=== PATIENT | female | born 1970 | race Two or more races ===

== ENCOUNTER 2018-08-20 08:27 | Emergency (ER) | payer BC, OTHER ==
--- NOTE | 2018-08-20 08:33 | UC ---
General HPI - HPI Summary HPI Summary: 2 days progressively worse cough (min productive), sore throat, congestion, general feeling unwell. Tiny bumps on tip of tongue, o/w without garret sores / ulcers. No fever / chills. Cough is bad during the day, very bad at night. No rash. No GI / issues reported. - History of Current Complaint Stated Complaint: SORE THROAT Time Seen by Provider: 08/20/18 08:33 Hx Obtained From: Patient - Allergy/Home Medications Allergies/Adverse Reactions: Allergies Allergy/AdvReac Type Severity Reaction Status Date / Time No Known Allergies Allergy Verified 08/20/18 08:38 PMH/Surg Hx/FS Hx/Imm Hx Previously Healthy: Yes - Surgical History Surgical History: None - Social History Alcohol Use: Daily Substance Use Type: None Smoking Status (MU): Former Smoker Review of Systems All Other Systems Reviewed And Are Negative: Yes Constitutional: Positive: Other - see hpi Skin: Positive: Other - see hpi Eyes: Positive: Other - see hpi ENT: Positive: Other Respiratory: Positive: Other - see hpi Cardiovascular: Positive: Other Gastrointestinal: Positive: Other - see hpi Genitourinary: Positive: Other - see hpi Motor: Positive: Other - see hpi Neurovascular: Positive: Other - see hpi Musculoskeletal: Positive: Other: - see hpi Neurological: Positive: Other Psychological: Positive: Negative Is Patient Immunocompromised?: No Physical Exam Triage Information Reviewed: Yes Appearance: Well-Nourished - sitting up, conversing easily. Looks tired but nad Vital Signs Reviewed: Yes Eye Exam: Normal ENT: Positive: Pharyngeal erythema, Nasal congestion, TM dull, Other - tongue with small scattered white bumps on tip of tongue. Not c/w strawberry tongue, more c/w viral etiology. Neck exam: Normal Neck: Positive: Supple, Nontender, No Lymphadenopathy Respiratory Exam: Other - + ronchorus cough. + exp wheeze middle base. BS equal, full. Respiratory: Positive: No respiratory distress, No accessory muscle use Cardiovascular Exam: Normal Cardiovascular: Positive: RRR, No Murmur, Pulses Normal, Brisk Capillary Refill Abdominal Exam: Normal Abdomen Description: Positive: Nontender Musculoskeletal Exam: Normal Neurological Exam: Normal Psychological Exam: Normal Skin Exam: Normal - nondiaphoretic. no visible or reported rash. Course/Dx - Course Course Of Treatment: Reviewed results / coa / tx plan. Cont subst conversation unremark. Questions as posed answered to the best of my ability. Has used inhalers in the past, but does not have an active inhaler now. - Diagnoses Provider Diagnosis: Bronchitis, Sore throat Discharge - Sign-Out/Discharge Documenting (check all that apply): Post-Discharge Follow Up All imaging exams completed and their final reports reviewed: No Studies - Discharge Plan Condition: Stable Disposition: HOME Prescriptions: Albuterol HFA INHALER* [Ventolin HFA Inhaler*] 1 - 2 puff INH Q6H PRN #1 mdi PRN Reason: Wheezing Azithromyxin JEANETTE (NF) [Z-Jeanette (Zithromax) 250 mg tabs #6] 2 tab PO .TODAY, THEN 1 DAILY #6 tab Benzonatate CAP* [Tessalon 100 MG CAP*] 100 mg PO TID PRN #30 cap PRN Reason: Cough Codeine Phosphate/Guaifenesin [Guaifen-Codeine 200-20 mg/10Ml] 10 ml PO Q6H PRN #200 liquid MDD 40mg PRN Reason: Cough Patient Education Materials: Pharyngitis (ED), Acute Bronchitis (ED), Bronchospasm (ED) Referrals: No Primary Care Phys,NOPCP [Primary Care Provider] - Additional Instructions: Follow up with your primary care physician, per routine. Seek medical attention for worse or new problems. Hydrate well.
[2018-08-20 08:38] VITALS: BP 104/73
== END 2018-08-20 09:10 | disposition home or self-care (01) ==
LOC: UCEAST 08:27
DX: J40 Bronchitis, not specified as acute or chronic (principal); J02.9 Acute pharyngitis, unspecified; Z87.891 Personal history of nicotine dependence
CPT/HCPCS: 87651; 99212; G0463